=== PATIENT | male | born 1995 | race Hispanic/Latino ===

== ENCOUNTER 2018-04-26 00:14 | Emergency (ER) | payer SELFPAY ==
[2018-04-26 00:37] VITALS: BP 127/64; PULSE 98; RESP 16; TEMP 98; O2SAT 98
--- NOTE | 2018-04-26 00:56 | ED PDOC ---
HPI: General Adult Time Seen by Provider: 04/26/18 00:36 Chief Complaint (Nursing): Medical Clearance Chief Complaint (Provider): clearance for incarceration History Per: Patient History/Exam Limitations: no limitations Additional Complaint(s): 22 y/o male here in police custody for clearance for incarceration. Patient denies medical complaints. Patient denies suicidal/homicidal ideations or psychiatric history. Past Medical History Reviewed: Historical Data, Nursing Documentation, Vital Signs Vital Signs: Last Vital Signs Temp 98 F 04/26/18 00:35 Pulse 98 H 04/26/18 00:35 Resp 16 04/26/18 00:35 BP 127/64 04/26/18 00:35 Pulse Ox 98 04/26/18 00:35 - Medical History PMH: No Chronic Diseases - Surgical History Surgical History: No Surg Hx - Family History Family History: States: No Known Family Hx - Living Arrangements Living Arrangements: Alone - Social History Current smoker - smoking cessation education provided: No Alcohol: None Drugs: Denies - Allergies Allergies/Adverse Reactions: Allergies Allergy/AdvReac Type Severity Reaction Status Date / Time No Known Allergies Allergy Verified 04/26/18 00:35 Review of Systems ROS Statement: Except As Marked, All Systems Reviewed And Found Negative Physical Exam - Reviewed Nursing Documentation Reviewed: Yes Vital Signs Reviewed: Yes - Physical Exam Appears: Positive for: Well, Non-toxic, No Acute Distress Head Exam: Positive for: ATRAUMATIC, NORMAL INSPECTION, NORMOCEPHALIC Skin: Positive for: Normal Color Eye Exam: Positive for: Normal appearance ENT: Positive for: Normal ENT Inspection Cardiovascular/Chest: Positive for: Regular Rate, Rhythm Respiratory: Positive for: Normal Breath Sounds Gastrointestinal/Abdominal: Positive for: Normal Exam Back: Positive for: Normal Inspection Extremity: Positive for: Normal ROM Neurologic/Psych: Positive for: Alert, Oriented (x3) - ECG O2 Sat by Pulse Oximetry: 98 - Progress ED Course And Treament: Patient medically and psychiatrically cleared for incarceration Disposition - Clinical Impression Clinical Impression: Medical clearance for incarceration - Patient ED Disposition Is Patient to be Admitted: No Counseled Patient/Family Regarding: Diagnosis, Need For Followup - Disposition Disposition: Routine/Home Disposition Time: 00:58 Condition: STABLE Additional Instructions: Patient medically and psychiatrically cleared for incarceration Instructions: General (DC)
== END 2018-04-26 01:19 ==
LOC: H.ER 00:14
DX: Z02.89 Encounter for other administrative examinations (principal); Z65.3 Problems related to other legal circumstances